=== PATIENT | male | born 1940 | race Hispanic/Latino ===

== ENCOUNTER 2018-04-25 06:07 | Observation (INO) | payer MEDICARE ==
[2018-04-24 10:55] VITALS: BP 134/68
[2018-04-24 11:05] LABS: APPEARANCE,URINE Clear (CLEAR); BILIRUBIN,URINE Small (NEGATIVE); COLOR,URINE Dark Yellow (YELLOW); GLUCOSE, URINE (UA) Negative (NEGATIVE); KETONES,URINE Trace mg/dL (NEGATIVE); LEUKOCYTE ESTERASE ,URINE Negative (NEGATIVE); NITRATE,URINE Negative (NEGATIVE); OCCULT BLOOD,URINE Negative (NEGATIVE); PROTEIN,URINE Negative (NEGATIVE)
[2018-04-24 11:05] LABS: BASOPHILS % (AUTO) 0.9 % (0.0-5.0); HEMATOCRIT 35.4 % (42-54); LYMPHOCYTES % (AUTO) 10.3 % (21.0-51.0); MEAN CORPUSCULAR HEMOGLOBIN 29.6 pg (27.0-33.0); MEAN CORPUSCULAR HGB CONC 33.6 g/dL (32.0-36.0); MEAN CORPUSCULAR VOLUME 88.3 fL (79-99); MONOCYTES % (AUTO) 5.3 % (3.0-13.0); NEUTROPHILS % (AUTO) 80.5 % (40.0-77.0); PLATELET COUNT (AUTO) 238 K/uL (130-400); RED BLOOD CELL COUNT(AUTO) 4.01 MIL/uL (4.50-6.20); RED CELL DISTRIBUTION WIDTH 14.5 % (11.0-15.5); WHITE BLOOD COUNT (AUTO) 8.5 K/uL (4.8-10.8)
[2018-04-24 11:16] LABS: CREATININE 1.6 mg/dL (0.5-1.5); POTASSIUM 4.5 mmol/L (3.5-5.1)
[2018-04-24 11:18] LABS: BACTERIA,URINE Rare /HPF (None Seen); SQUAMOUS EPITHELIAL CELL,UR Rare /HPF (0-2); WBC,URINE 0-1 /HPF (0-1)
[2018-04-24 11:23] LABS: INR 1.02 (0.85-1.15); PARTIAL THROMBOPLASTIN TIME 26.9 SEC (26.3-35.5); PROTHROMBIN TIME 10.7 SEC (9.6-11.6)
[~2018-04-25] VITALS: Ht 177.8 cm; Wt 107.5 kg
[2018-04-25] VITALS (12 sets, daily range): BP systolic 111–135; BP diastolic 60–75
[~2018-04-25 06:07] MED LIST: AEC81 PO; ATOR-2 PO; DULO60CA63 PO; ERGO500014 PO; FENO145T37 PO; FLUTICASONE NASAL; METOPROLOL PO; SODIUM CHLORIDE 0.9% 500ML 500 ML IV SCH; TAMS-1 PO; [UNRECOGNIZED DRUG - OTHER] PO
[2018-04-25] MEDS: SODIUM CHLORIDE 0.9% 1000ML 1,000 ML IV SCH ×3 (06:35→17:32)
[2018-04-25] MEDS ORDERED: SODIUM BICARB 50MEQ 50ML VIAL ONE (14:39)
[2018-04-25] MEDS ORDERED: HEPARIN SODIUM 1000UNIT/ML 10ML VIAL ONE (14:39)
[2018-04-25] MEDS ORDERED: LIDOCAINE HCL 2% 20ML ONE (14:39)
[2018-04-25] MEDS ORDERED: ISOVUE-370 50ML VIAL IV ONE (14:39)
[2018-04-25] MEDS ORDERED: NITROGLYCERIN 5 MG/ML 10 ML VIAL IV ONE (14:39)
[2018-04-25] MEDS ORDERED: IOPAMIDOL-370 75 ML VIAL IV ONE (14:39)
[2018-04-25] MEDS ORDERED: MEPERIDINE-PF 25 MG/ML SYG ONE (15:02)
[2018-04-25] MEDS ORDERED: MIDAZOLAM HCL 1 MG/ML 2ML VIAL ONE (15:02)
[2018-04-25] MEDS ORDERED: CLOPIDOGREL BISULFATE 300 MG TAB ONE (15:42)
[2018-04-25] MEDS ORDERED: ASPIRIN 325MG EC TAB 325 MG TABLET.DR PO ONE (15:42)
[2018-04-25] MEDS ORDERED: ACETAMINOPHEN-CODEINE 300/30MG TAB PO PRN ×2 (16:00)
[2018-04-25] MEDS ORDERED: GLUCAGON 1MG KIT 1 MG ML IM PRN (16:00)
[2018-04-25] MEDS ORDERED: DEXTROSE 50%-WATER 50 ML DISP.SYRIN IV PRN (16:00)
[2018-04-25] MEDS ORDERED: ONDANSETRON HCL 4 MG/2 ML VIAL IVP PRN (16:00)
[2018-04-25] MEDS ORDERED: CLOP75TA32 PO (16:01)
[2018-04-25] MEDS: INSULIN HUMULIN R 100 UNIT/ML 3ML SQ SCH ×2 (16:30→20:12)
[2018-04-25] MEDS ORDERED: CLOPIDOGREL BISULFATE 300 MG TAB PO SCH (17:56)
[2018-04-26 00:29] VITALS: BP 113/69
[2018-04-26] MEDS: SODIUM CHLORIDE 0.9% 1000ML 1,000 ML IV SCH (01:57)
[2018-04-26 04:00] VITALS: BP 118/60
[2018-04-26 04:46] LABS: HEMATOCRIT 30.7 % (42-54); MEAN CORPUSCULAR HEMOGLOBIN 29.6 pg (27.0-33.0); MEAN CORPUSCULAR HGB CONC 33.5 g/dL (32.0-36.0); MEAN CORPUSCULAR VOLUME 88.6 fL (79-99); NUCLEATED RED BLOOD CELLS 0.1 % (0.0-0.19); PLATELET COUNT (AUTO) 183 K/uL (130-400); RED BLOOD CELL COUNT(AUTO) 3.46 MIL/uL (4.50-6.20); RED CELL DISTRIBUTION WIDTH 14.3 % (11.0-15.5); WHITE BLOOD COUNT (AUTO) 6.9 K/uL (4.8-10.8)
[2018-04-26 05:06] LABS: CREATININE 1.4 mg/dL (0.5-1.5); POTASSIUM 4.1 mmol/L (3.5-5.1)
[2018-04-26] MEDS: INSULIN HUMULIN R 100 UNIT/ML 3ML SQ SCH (06:00)
[2018-04-26 07:41] VITALS: BP 115/65
[2018-04-26] MEDS ORDERED: CLOPIDOGREL BISULFATE 75 MG TAB PO SCH (09:00)
== END 2018-04-26 11:15 | disposition home or self-care (01) ==
LOC: DAH 06:07 → 2DH 16:18
PROVIDERS: ADMIT Internal Medicine Cardiovascular Disease; ATTEND Internal Medicine Cardiovascular Disease
DX: I25.119 Atherosclerotic heart disease of native coronary artery with unspecified angina pectoris (principal); I10 Essential (primary) hypertension; E11.9 Type 2 diabetes mellitus without complications; E66.9 Obesity, unspecified; N40.0 Benign prostatic hyperplasia without lower urinary tract symptoms; I87.2 Venous insufficiency (chronic) (peripheral); E78.5 Hyperlipidemia, unspecified; Z79.82 Long term (current) use of aspirin; Z79.01 Long term (current) use of anticoagulants
CPT/HCPCS: 36415; 71045; 80048; 80061; 81001; 82948; 85025; 85027; 85347; 85610; 85730; 93005; 93458; 99156; 99157; A4606; C1760; C1769; C1887; C1894; C9600; G0378; J1644; J2175; J2250; J3490; J7030; Q9967

== ENCOUNTER 2020-12-01 06:57 | Day surgery (SDC) | payer OTHER ==
[2020-11-27 15:07] LABS: BASOPHILS % (AUTO) 0.4 % (0.0-5.0); EOSINOPHILS % (AUTO) 3.9 % (0.0-8.0); HEMATOCRIT 40.4 % (42-54); LYMPHOCYTES % (AUTO) 15.1 % (21.0-51.0); MEAN CORPUSCULAR HEMOGLOBIN 28.3 pg (27.0-33.0); MEAN CORPUSCULAR HGB CONC 31.4 g/dL (32.0-36.0); MONOCYTES % (AUTO) 6.9 % (3.0-13.0); NEUTROPHILS % (AUTO) 73.2 % (40.0-77.0); PLATELET COUNT (AUTO) 234 K/uL (130-400); RED BLOOD CELL COUNT(AUTO) 4.49 MIL/uL (4.50-6.20); RED CELL DISTRIBUTION WIDTH 13.7 % (11.0-15.5); WHITE BLOOD COUNT (AUTO) 9.3 K/uL (4.8-10.8)
[2020-11-27 15:18] LABS: APPEARANCE,URINE Clear (CLEAR); BILIRUBIN,URINE Negative (NEGATIVE); COLOR,URINE Yellow (YELLOW); GLUCOSE, URINE (UA) >=1000 mg/dL (NEGATIVE); KETONES,URINE Negative (NEGATIVE); LEUKOCYTE ESTERASE ,URINE Negative (NEGATIVE); NITRATE,URINE Negative (NEGATIVE); OCCULT BLOOD,URINE Negative (NEGATIVE); PROTEIN,URINE Negative (NEGATIVE)
[2020-11-27 15:22] LABS: INR 1.07 (0.85-1.15); PROTHROMBIN TIME 11.4 SEC (9.6-11.6)
[2020-11-27 15:25] LABS: CREATININE 1.8 mg/dL (0.5-1.5); POTASSIUM 4.9 mmol/L (3.5-5.1)
[2020-11-27 15:31] LABS: BACTERIA,URINE Rare /HPF (None Seen); RBC,URINE 0-1 /HPF (0-1); SQUAMOUS EPITHELIAL CELL,UR Rare /HPF (0-2); WBC,URINE 0-1 /HPF (0-1)
[2020-11-28 12:25] VITALS: BP 103/63
[~2020-12-01] VITALS: Ht 175.3 cm; Wt 96.8 kg
[2020-12-01] VITALS (9 sets, daily range): BP systolic 107–121; BP diastolic 58–65
[~2020-12-01 06:57] MED LIST changes: +BACL5TAB PO; +CETI10TA57 PO; +CLOP75TA32 PO; +DAPA5TAB PO; -DULO60CA63 PO; +DULO60CA64 PO; +DUTA0.5C37 PO; +EXEN2PEN SQ; +EZET10TA13 PO; +FENO145T26 PO; -FENO145T37 PO; -FLUTICASONE NASAL; +METO-408 PO; -METOPROLOL PO; +SITA50TA PO; -SODIUM CHLORIDE 0.9% 500ML 500 ML IV SCH; -[UNRECOGNIZED DRUG - OTHER] PO
[2020-12-01 07:39] LABS: CREATININE 1.7 mg/dL (0.5-1.5); POTASSIUM 4.2 mmol/L (3.5-5.1)
[2020-12-01] MEDS ORDERED: 0.9%NACL 1000ML 1,000 ML IV SCH ×2 (08:00→10:30)
[2020-12-01] MEDS ORDERED: METO-408 PO (08:32)
[2020-12-01] MEDS ORDERED: HEPARIN 10,000 UNIT/10ML (1,000 UNIT/ML) VIAL ONE (09:39)
[2020-12-01] MEDS ORDERED: SODIUM BICARB 50MEQ 50ML VIAL 50 ML ONE (09:39)
[2020-12-01] MEDS ORDERED: LIDOCAINE HCL 400MG/20ML VIAL ONE (09:40)
[2020-12-01] MEDS ORDERED: NITROGLYCERIN 2 MG VIAL IV ONE (09:40)
[2020-12-01] MEDS ORDERED: IOHEXOL 350 MG/ML 100ML INFUS..BTL IV ONE (09:40)
[2020-12-01] MEDS ORDERED: MEPERIDINE-PF 25 MG/ML SYG ONE (09:40)
[2020-12-01] MEDS ORDERED: MIDAZOLAM HCL 1 MG/ML 2ML VIAL ONE (09:40)
[2020-12-01] MEDS ORDERED: DEXTROSE 50%-WATER 50 ML DISP.SYRIN IV PRN (10:30)
[2020-12-01] MEDS ORDERED: GLUCAGON 1MG KIT 1 MG ML IM PRN (10:30)
[2020-12-01] MEDS ORDERED: INSULIN HUMULIN R 100 UNIT/ML 3ML SQ SCH (11:30)
== END 2020-12-01 14:39 | disposition home or self-care (01) ==
LOC: DAH 06:57
PROVIDERS: ATTEND Internal Medicine Cardiovascular Disease
DX: I25.119 Atherosclerotic heart disease of native coronary artery with unspecified angina pectoris (principal); E11.22 Type 2 diabetes mellitus with diabetic chronic kidney disease; I12.9 Hypertensive chronic kidney disease with stage 1 through stage 4 chronic kidney disease, or unspecified chronic kidney disease; N18.9 Chronic kidney disease, unspecified; E78.5 Hyperlipidemia, unspecified; Z79.01 Long term (current) use of anticoagulants; Z95.5 Presence of coronary angioplasty implant and graft; Z79.899 Other long term (current) drug therapy; Z79.82 Long term (current) use of aspirin; Z79.84 Long term (current) use of oral hypoglycemic drugs; Z98.890 Other specified postprocedural states; Z79.02 Long term (current) use of antithrombotics/antiplatelets; Z98.49 Cataract extraction status, unspecified eye
CPT/HCPCS: 36415 ×2; 71045; 80048 ×2; 81001; 82948 ×2; 85025; 85610; 85730; 93005; 93458; A4215; A4216; A4221; A4222; A4223 ×3; A4606; A4663; A6260; C1760; C1894 ×2; J1644; J2175; J2250; J3490 ×3; J7030; Q9965; Q9967; 99156; 99157

== ENCOUNTER → 2022-03-17 | Outpatient (CLI) | payer OTHER ==
[~2022-03-17] MED LIST changes: +ALBUTEROL 0.083% 2.5 MG/3 ML INH IH ONE
== END | disposition home or self-care (01) ==
LOC: RESP 08:45
PROVIDERS: ATTEND Internal Medicine Cardiovascular Disease
DX: I10 Essential (primary) hypertension (principal); R06.02 Shortness of breath
CPT/HCPCS: 94060; 94727; 94729

== ENCOUNTER 2022-05-10 08:57 | Day surgery (SDC) | payer OTHER ==
[2022-05-06 10:47] LABS: BASOPHILS % (AUTO) 0.6 % (0.0-5.0); EOSINOPHILS % (AUTO) 3.1 % (0.0-8.0); HEMATOCRIT 37.6 % (42-54); LYMPHOCYTES % (AUTO) 12.9 % (21.0-51.0); MEAN CORPUSCULAR HGB CONC 32.4 g/dL (32.0-36.0); MEAN CORPUSCULAR VOLUME 89.3 fL (79-99); MONOCYTES % (AUTO) 5.3 % (3.0-13.0); NEUTROPHILS % (AUTO) 77.8 % (40.0-77.0); PLATELET COUNT (AUTO) 168 K/uL (130-400); RED BLOOD CELL COUNT(AUTO) 4.21 MIL/uL (4.50-6.20); RED CELL DISTRIBUTION WIDTH 13.5 % (11.0-15.5); WHITE BLOOD COUNT (AUTO) 6.8 K/uL (4.8-10.8)
[2022-05-06 10:57] LABS: CREATININE 1.6 mg/dL (0.5-1.5); POTASSIUM 4.9 mmol/L (3.5-5.1)
[2022-05-06 11:01] LABS: APPEARANCE,URINE CLEAR (CLEAR); BILIRUBIN,URINE NEGATIVE (NEGATIVE); COLOR,URINE YELLOW (YELLOW); GLUCOSE, URINE (UA) 100 mg/dL (NEGATIVE); KETONES,URINE NEGATIVE (NEGATIVE); LEUKOCYTE ESTERASE ,URINE NEGATIVE (NEGATIVE); NITRATE,URINE NEGATIVE (NEGATIVE); OCCULT BLOOD,URINE NEGATIVE (NEGATIVE); PROTEIN,URINE NEGATIVE (NEGATIVE)
[2022-05-06 11:03] LABS: INR 1.01 (0.85-1.15)
[2022-05-06 11:05] LABS: BACTERIA,URINE None Seen /HPF (None Seen); RBC,URINE 0-1 /HPF (0-1); SQUAMOUS EPITHELIAL CELL,UR 0-2 /HPF (0-2); WBC,URINE 0-1 /HPF (0-1)
[2022-05-06 11:11] LABS: B-TYPE NATRIURETIC PEPTIDE 14 pg/mL (0-100)
[2022-05-06 14:36] VITALS: BP 105/64
[2022-05-10] VITALS (11 sets, daily range): BP systolic 116–140; BP diastolic 58–83
[~2022-05-10] VITALS: Ht 172.7 cm; Wt 97.3 kg
[~2022-05-10 08:57] MED LIST changes: -AEC81 PO; -ALBUTEROL 0.083% 2.5 MG/3 ML INH IH ONE; +ASPI-1026 PO; -ATOR-2 PO; +ATOR80TA PO; -BACL5TAB PO; -CETI10TA57 PO; -CLOP75TA32 PO; +CYAN-35 PO; -DAPA5TAB PO; +DULO60CA45 PO; -DULO60CA64 PO; -EXEN2PEN SQ; +EXEN5PEN2 SQ; -METO-408 PO
[2022-05-10] MEDS ORDERED: 0.9%NACL 1000ML 1,000 ML IV ONE (09:58)
[2022-05-10] MEDS ORDERED: NICARDIPINE 25MG INJ IV ONE (13:30)
[2022-05-10] MEDS ORDERED: NITROGLYCERIN 50MG VIAL ONE (13:30)
[2022-05-10] MEDS ORDERED: HEPARIN 10,000 UNIT/10ML (1,000 UNIT/ML) VIAL ONE (13:30)
[2022-05-10] MEDS ORDERED: LIDOCAINE HCL 400MG/20ML VIAL ONE (13:31)
[2022-05-10] MEDS ORDERED: IOHEXOL 350 MG/ML 100ML INFUS..BTL IV ONE (13:31)
[2022-05-10] MEDS ORDERED: MEPERIDINE-PF 25 MG/ML SYG ONE (13:42)
[2022-05-10] MEDS ORDERED: MIDAZOLAM HCL 1 MG/ML 2ML VIAL ONE (13:42)
[2022-05-10] MEDS ORDERED: 0.9%NACL 1000ML 1,000 ML IV SCH (14:30)
== END 2022-05-10 19:20 | disposition home or self-care (01) ==
LOC: DAH 08:57
PROVIDERS: ATTEND Internal Medicine Cardiovascular Disease
DX: I25.119 Atherosclerotic heart disease of native coronary artery with unspecified angina pectoris (principal); E11.22 Type 2 diabetes mellitus with diabetic chronic kidney disease; I12.9 Hypertensive chronic kidney disease with stage 1 through stage 4 chronic kidney disease, or unspecified chronic kidney disease; N18.9 Chronic kidney disease, unspecified; J45.909 Unspecified asthma, uncomplicated; I87.2 Venous insufficiency (chronic) (peripheral); D64.9 Anemia, unspecified; Z79.01 Long term (current) use of anticoagulants; Z79.899 Other long term (current) drug therapy; Z98.890 Other specified postprocedural states; Z95.5 Presence of coronary angioplasty implant and graft; Z98.49 Cataract extraction status, unspecified eye; Z82.49 Family history of ischemic heart disease and other diseases of the circulatory system; Z83.3 Family history of diabetes mellitus; Z79.82 Long term (current) use of aspirin
CPT/HCPCS: 36415; 71045; 80048; 81001; 82948 ×2; 83880; 85025; 85610; 85730; 93005; 93458; A4215; A4216; A4221; A4222; A4223 ×3; A4606; A4663; C1760; C1894; J1644; J2175; J2250; J3490 ×2; J7030; Q9965; Q9967; 96360; 96361; 99156; 99157

== ENCOUNTER 2023-01-21 18:01 | Emergency (ER) | payer OTHER ==
[~2023-01-21] VITALS: Ht 172.7 cm; Wt 95.3 kg
[2023-01-21 18:32] LABS: BASOPHILS % (AUTO) 0.4 % (0.0-5.0); LYMPHOCYTES % (AUTO) 11.9 % (21.0-51.0); MEAN CORPUSCULAR HEMOGLOBIN 28.5 pg (27.0-33.0); MEAN CORPUSCULAR HGB CONC 32.9 g/dL (32.0-36.0); MEAN CORPUSCULAR VOLUME 86.6 fL (79-99); NEUTROPHILS % (AUTO) 77.3 % (40.0-77.0); PLATELET COUNT (AUTO) 157 K/uL (130-400); RED BLOOD CELL COUNT(AUTO) 3.58 MIL/uL (4.50-6.20); RED CELL DISTRIBUTION WIDTH 13.5 % (11.0-15.5); WHITE BLOOD COUNT (AUTO) 7.8 K/uL (4.8-10.8)
[2023-01-21 18:55] LABS: B-TYPE NATRIURETIC PEPTIDE 10 pg/mL (0-100)
[2023-01-21 18:57] LABS: CREATININE 1.7 mg/dL (0.5-1.5); POTASSIUM 4.1 mmol/L (3.5-5.1); TOTAL PROTEIN, SERUM 6.1 g/dL (6.0-8.3)
[2023-01-21] MEDS ORDERED: MORPHINE 2 MG SYG ONE (18:57)
[2023-01-21] MEDS ORDERED: ONDANSETRON 4MG INJ ONE (18:57)
[2023-01-21] MEDS ORDERED: ONDANSETRON 4MG INJ IVP ONE (19:00)
[2023-01-21] MEDS ORDERED: MORPHINE 2 MG SYG IM ONE (19:00)
[2023-01-21] MEDS ORDERED: MORPHINE 4 MG SYG ONE ×2 (19:46→22:40)
[2023-01-21] MEDS ORDERED: MORPHINE 4 MG SYG IVP ONE ×2 (20:00→23:00)
[2023-01-21] MEDS ORDERED: TRAM-355 PO (22:39)
[2023-01-21] MEDS ORDERED: DICY20TA2 PO (22:42)
[2023-01-21] MEDS ORDERED: MORPHINE 4 MG SYG IVP STA (22:44)
[2023-01-21 23:14] VITALS: BP 151/74
== END 2023-01-21 23:16 | disposition home or self-care (01) ==
LOC: EDH 18:01
DX: K80.50 Calculus of bile duct without cholangitis or cholecystitis without obstruction (principal); I10 Essential (primary) hypertension; Z79.899 Other long term (current) drug therapy; Z98.890 Other specified postprocedural states; Z79.84 Long term (current) use of oral hypoglycemic drugs; Z95.5 Presence of coronary angioplasty implant and graft
CPT/HCPCS: 99285; 96374; 76705; 71045; 96375; 83735; 84484; 80053; 83880; 83690; 85025; 36415; 96376; 93005; 96372; J2405; J2270 ×2